=== PATIENT | female | born 1955 | race Hispanic/Latino ===

== ENCOUNTER 2024-07-10 02:08 | Observation (INO) | payer OTHER ==
[~2024-07-10] VITALS: Ht 152.4 cm; Wt 49.8 kg
[2024-07-10] MEDS: ondanSETRON 4MG INJ IVP ONE (03:25)
[2024-07-10] MEDS: morPHINE 2 MG SYG IVP ONE (03:25)
[2024-07-10] MEDS: 0.9%NACL 1000ML 1,000 ML IV ONE (03:25)
[2024-07-10 03:34] LABS: BASOPHILS # (AUTO) 0.04 K/uL (0.00-0.20); BASOPHILS % (AUTO) 0.2 % (0.0-5.0); EOSINOPHILS # (AUTO) 0.03 K/uL (0.00-0.70); EOSINOPHILS % (AUTO) 0.2 % (0.0-8.0); HEMATOCRIT 32.9 % (36-48); IMMATURE GRANULOCYTE ABSOLUTE 0.13 K/uL (0-1); LYMPHOCYTES # (AUTO) 1.7 K/uL (1.0-4.8); MEAN CORPUSCULAR HEMOGLOBIN 31.4 pg (27.0-33.0); MEAN CORPUSCULAR HGB CONC 33.4 g/dL (32.0-36.0); MONOCYTES # (AUTO) 0.5 K/uL (0.1-1.0); MONOCYTES % (AUTO) 2.9 % (3.0-13.0); PLATELET COUNT (AUTO) 423 K/uL (130-400); RED CELL DISTRIBUTION WIDTH 12.6 % (11.0-15.5); WHITE BLOOD COUNT (AUTO) 18.4 K/uL (4.8-10.8)
[2024-07-10 03:44] LABS: CREATININE 0.8 mg/dL (0.5-1.0); POTASSIUM 4.2 mmol/L (3.5-5.1)
--- NOTE | 2024-07-10 03:48 | ERN ---
ED Note History of Present Illness Stated Complaint: CHEST PAIN/ABDOMINAL PAIN AFTER TAKING T3 Chief Complaint: Chest Pain Time Seen by MD: 02:10 Dictation: This is a 68-year-old female who came to the emergency room via EMS with complaints of severe epigastric pain and apparently she took half a tablet of Tylenol No. 3 for arthritis pain. The pain was so excruciating it would come and go like cramping she had nausea but no vomitings. No diarrhea she had a bowel movement this afternoon No hematemesis or melena Chronic problems include hypertension and right ankle pain. Allergies: Coded Allergies: No Known Drug Allergies (Unverified Allergy, Unknown, 07/10/24) Past Medical History Past Medical History: Hypertension Additional Past Medical Hx: FX RIGHT ANKLE Surgical History: None Family History: Negative Social History: Negative History: Not Applicable RN Note Reviewed/Agreed w/PFSH: Yes Review of System Dictation Constitutional: Negative for fever,chills, and weight loss Eyes: Negative for injury, pain,redness, and discharge ENT: Negative for injury,pain or swelling Cardiovascular: Negative for chest pain, palpitations, and edema Respiratory: Negative for shortness of breath, cough, and wheezing, Abdomen/GI: Positive for epigastric abdominal pain, nausea, denied vomiting, diarrhea, and constipation Back: Negative for injury and pain : Negative for injury, bleeding and discharge MS/Extremity: Negative for injury and deformity Skin: Negative for rash, and discoloration Neuro: Negative for headache, weakness, numbness, tingling, and seizure Psych: Negative for suicide ideation, homicidal ideation, and hallucinations Physical Exam Dictation General: awake, alert, NAD very emaciated chronically ill-appearing female who appeared uncomfortable due to pain and discomfort. Head/Face: Normocephalic, atraumatic Eyes: PERRL, EOMI, vision at baseline ENT: oral cavity clear, TMs clear, no signs of infection Neck: Trachea midline, supple, no nuchal rigidity Cardiovascular: RRR, normal S1/S2, No MRGs, no JVD Respiratory: CTAB, no respiratory distress, No rales or wheezes Abdomen: Soft, tenderness in the epigastric area non-distended, normal bowel sounds, no guarding or rebound. Skin: Warm, dry, normal turgor, no rash MS/Extremity: Pulses equal, no cyanosis, neurovascular intact, FROM Neuro: COAx4, GCS 15, strength 5/5, CN 2-12 intact, normal cerebellar exam, normal gait, Psych: Normal behavior, mood, and affect normal Extremities-trace edema without any palpable cords, Homans sign is negative Results (Laboratory/Radiology) Laboratory/Radiology Laboratory Tests Test 07/10/24 03:23 White Blood Count 18.4 K/uL (4.8-10.8) H Red Blood Count 3.50 MIL/uL (4.00-5.50) L Hemoglobin 11.0 g/dL (12.0-16.0) L Hematocrit 32.9 % (36-48) L Mean Corpuscular Volume 94.0 fL (79-99) Mean Corpuscular Hemoglobin 31.4 pg (27.0-33.0) Mean Corpuscular Hemoglobin Concent 33.4 g/dL (32.0-36.0) Red Cell Distribution Width 12.6 % (11.0-15.5) Platelet Count 423 K/uL (130-400) H Mean Platelet Volume 8.8 fL (7.5-10.5) Immature Granulocyte % (Auto) 0.7 % (0-1) Neutrophils (%) (Auto) 87.0 % (40.0-77.0) H Lymphocytes (%) (Auto) 9.0 % (21.0-51.0) L Monocytes (%) (Auto) 2.9 % (3.0-13.0) L Eosinophils (%) (Auto) 0.2 % (0.0-8.0) Basophils (%) (Auto) 0.2 % (0.0-5.0) Neutrophils # (Auto) 16.0 K/uL (1.8-7.7) H Lymphocytes # (Auto) 1.7 K/uL (1.0-4.8) Monocytes # (Auto) 0.5 K/uL (0.1-1.0) Eosinophils # (Auto) 0.03 K/uL (0.00-0.70) Basophils # (Auto) 0.04 K/uL (0.00-0.20) Absolute Immature Granulocyte (auto 0.13 K/uL (0-1) Nucleated Red Blood Cells 0.0 % (0.0-0.19) White Cell Morphology Comment See comments Sodium Level 136 mmol/L (136-145) Potassium Level 4.2 mmol/L (3.5-5.1) Chloride Level 98 mmol/L (101-111) L Carbon Dioxide Level 27 mmol/L (21-32) Blood Urea Nitrogen 16 mg/dL (7-18) Creatinine 0.8 mg/dL (0.5-1.0) Glomerular Filtration Rate Calc 80 mL/min (>90) Random Glucose 128 mg/dL (70-105) H Total Calcium 9.4 mg/dL (8.5-10.1) Total Creatine Kinase 59 U/L (21-232) Troponin I High Sensitivity 5.6 ng/L (4-50) Lipase 262 U/L (16-77) H Labs Reviewed?: Yes ED Course ED Course Orders Procedure Category Date Status Time Cbc With Differential LAB 07/10/24 Complete 02:13 Urinalysis Profile LAB 07/10/24 In Process 02:13 12 Lead Ekg Tracing- EKG 07/10/24 Logged Technical 02:13 0.9%Nacl 1000ml (Ns PHA 07/10/24 In Process 1000ml) 02:30 Morphine 2mg Syg PHA 07/10/24 Complete (Morphine 2mg Syg) 02:30 Ondansetron 4mg Inj PHA 07/10/24 Complete (Zofran 4mg Inj) 02:30 Chest 1vw RAD 07/10/24 Taken 02:13 Lipase LAB 07/10/24 Complete 02:13 Basic Metabolic Panel LAB 07/10/24 Complete 02:13 Ct Abdomen/Pelvis W/O CT 07/10/24 Taken Contrast 03:27 Cardiac Panel LAB 07/10/24 Complete 03:23 Magnesium LAB 07/10/24 In Process 03:52 Current Medications Medications (Trade) Dose Ordered Sig/Cortes Route PRN Reason Start Time Stop Time Status Last Admin Dose Admin Morphine Sulfate (morPHINE 2MG SYG) 2 mg ONCE ONCE IVP 07/10/24 02:30 07/10/24 02:57 DC 07/10/24 03:25 Ondansetron HCl (zoFRAN 4MG INJ) 4 mg ONCE ONCE IVP 07/10/24 02:30 07/10/24 02:57 DC 07/10/24 03:25 Sodium Chloride 1,000 ml @ 125 mls/hr ONCE ONCE IV 07/10/24 02:30 07/10/24 10:29 07/10/24 03:25 We will perform diagnostic labs, advanced imaging and administer medications according to the patient's complaint. Once the results are available, will review and personally interpreted the labs to rule out any acute life- threatening emergency the trach require immediate intervention and treatment. I will then re-evaluate the patient after treatment and diagnostic exams have return to determine whether the patient requires any further testing, can safely be discharged home or need further admission to hospital for additional treatment and evaluation. CBC showed a white count of 18.4 platelets 423. Chest x-ray showed hyperinflation but no obvious infiltrates. BNP 7 urinalysis are pending at this time I pursued a CT scan of the abdomen and pelvis to evaluate the persistent epigastric pain and a lipase of 262. There was no evidence of any pancreatitis and CT abdomen and pelvis was relatively benign and Bochdaleks hernia Due to severe epigastric pain I have recommended admission to the hospital to see if she has any hiatal hernia that is strangulated. Also with the leukocytos is urinalysis is still pending. On reassessment at 5:50 a.m. patient stated that the pain came back with severe tenderness. 6:00 a.m. patient accepted by [facility] mid-level provider for [facility] group for admission and further management including need for GI evaluation Medical Decision Making MDM MDM: Differential diagnosis: Gastritis, esophagitis, hiatal hernia, cholecystitis, peptic ulcer disease, strangulated hernia Rationale: Tests considered and ordered secondary to shared decision making include: labs, ECG and radiology Previous outside records reviewed: Old ER visits. Risk of complication and/or morbidity or mortality of patient management: None Medications-Per medication reconciliation Need for hospitalization: Patient does meet criteria for hospitalization. Need for emergency major/minor surgery: No There are no social concerns with this patient. Prescription drug management Prescriptions will include symptomatic care Patient's prior external medical records from other ER visits were reviewed by me as indicated. Prior testing and results from previous visits were reviewed. Prior tests were taken into account with medical decision making and resource utilization, independent historian/historians were used to obtain complete medical history. I independently interpreted the test that were performed, results were reviewed by me and considered findings on radiology if ordered. Medical management and examination interpretation discussions were had by me with other qualified healthcare professionals as indicated for the patient's care. Problem List Problem List: (1) Epigastric pain (2) Leukocytosis DX & DISP Disposition: Inpatient Decision to Admit Time: 06:00 Departure Impression: Primary Impression: Epigastric pain Additional Impression: Leukocytosis Condition: Stable Additional Instructions: Patient was informed of all the diagnostic labs and procedures conducted in the emergency room today and demonstrated understanding of the results. I personally reviewed and interpreted all the diagnostic exams performed in the ER today. The patient will be admitted to the hospital for further treatment and e valuation. Disposition-admit to facility Condition-stable/guarded Course-uncertain at this time Pain status-decreased Assessment-exam unchanged Admission Certification- I certify that the patients status is appropriate and is based on my best clinical judgment and the patient's condition as documented in the medical records Referrals: SELF,REFERRAL (PCP) CHANNING TATE MD July 10, 2024 03:48
[2024-07-10 05:59] LABS: APPEARANCE,URINE CLEAR (CLEAR); BILIRUBIN,URINE NEGATIVE (NEGATIVE); COLOR,URINE YELLOW (YELLOW); GLUCOSE, URINE (UA) NEGATIVE (NEGATIVE); KETONES,URINE NEGATIVE (NEGATIVE); LEUKOCYTE ESTERASE ,URINE 75 Leu/uL (NEGATIVE); NITRATE,URINE NEGATIVE (NEGATIVE); PH,URINE 5.5 (5.0-8.0); PROTEIN,URINE NEGATIVE (NEGATIVE); UROBILINOGEN,URINE 0.2 mg/dL (0.2-1.0)
[2024-07-10 06:00] LABS: ADD UA MICROSCOPIC YES
[2024-07-10] MEDS ORDERED: ondanSETRON 4MG INJ IVP PRN (06:00)
[2024-07-10] MEDS ORDERED: LAbetaLOL 20MG SYG IV PRN (06:00)
[2024-07-10] MEDS ORDERED: acetaMINOPHEN 650 MG SUPPOSITORY RC PRN (06:00)
[2024-07-10] MEDS ORDERED: acetaMINOPHEN 325 MG TAB PO PRN (06:00)
[2024-07-10] MEDS: INSULIN humuLIN R 100 UNIT/ML 3ML SQ SCH (06:00)
[2024-07-10] MEDS ORDERED: hydrALAZine 20MG/ML VIAL IV PRN (06:00)
[2024-07-10 06:02] LABS: BACTERIA,URINE MOD /HPF (None Seen); MUCUS,URINE RARE LPF (None Seen); SQUAMOUS EPITHELIAL CELL,UR RARE /HPF (0-2)
[2024-07-10] MEDS ORDERED: hydroMORPHone 0.5 MG SYG (0.5MG/0.5ML) IVP PRN (06:30)
[2024-07-10] MEDS: ZOSYN 3.375GM +NS 50ML IV SCH (06:30)
--- NOTE | 2024-07-10 07:10 | NUR ---
REPORT GIVEN TO BARTOLO RN AT THIS TIME
--- NOTE | 2024-07-10 08:33 | EKG ---
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
--- NOTE | 2024-07-10 08:40 | HMCIMG ---
Exam Type: CT ABDOMEN/PELVIS W/O CONTRAST Clinical Information: severe abdominal pain with tenderness in upper adbomen Comparison: None CT Dose Index (CTDI): 10.20 mGy Dose Length Product (DLP): 530.00 total mGy-cm PROTOCOL: Routine noncontrast helical scanning of the abdomen and pelvis was performed at 5mm collimation. Findings: No evidence of nephro or ureterolithiasis is found. No hydronephrosis or ureteral dilatation is seen. The lung bases are clear. Small left-sided Bochdalek hernia, fat-containing. The stomach is unremarkable. It shows no wall thickening. No gross ulceration is seen. It is not overly distended. There are no surrounding inflammatory changes. No wall lesions are identified to suggest cancer. The spleen is unremarkable. It is not enlarged. The pancreas shows normal anatomy. It is not fatty replaced. It shows no lesions. The pancreatic duct is not dilated. The gallbladder is surgically absent. The adrenal glands are unremarkable. There is no enlargement. No lesions are noted. The liver is unremarkable. It shows no focal masses. The appendix is unremarkable. It shows no evidence of inflammation. No appendicolith is seen. The small bowel is unremarkable. There is no evidence of dilatation to suggest obstruction. No evidence of adynamic ileus is seen. There is no small bowel wall thickening to suggest enteritis. The colon is unremarkable. The urinary bladder is unremarkable. There is no wall thickening to suggest tumor or inflammation. There are no intraluminal calculi. There are no diverticula. There is no evidence of chronic bladder outlet obstruction. There is no evidence of urinary bladder distention to suggest urinary retention. The other pelvic structures are unremarkable. The bony and vascular structures are unremarkable for the patient's age. IMPRESSION: NO RENAL STONES. NO ACUTE PATHOLOGY OR INFLAMMATION SEEN. This study was performed using dose reduction techniques to include automated exposure control and/or adjustment of the mA and/or kV according to patient size.
--- NOTE | 2024-07-10 09:04 | HMCIMG ---
Exam Type: CHEST 1VW Clinical Information: upper abdominal and lower chest pain Comparison: None Findings: The lungs are clear of infiltrates. The heart is normal in size. The bony and soft tissue structures of the chest are unremarkable. Impression: Clear lungs.
[2024-07-10] MEDS: PANTOPrazole 40 MG/VIAL IVP SCH (11:15)
[2024-07-10] MEDS: ENOXAPARIN SODIUM 40 MG/0.4 ML SYRINGE SQ SCH (11:15)
--- NOTE | 2024-07-10 12:14 | HP ---
[facility] HISTORY & PHYSICAL Date Patient Seen: July 10, 2024 Time of Visit: 12:14 Supervising Physician: [Dr. Ruiz] Primary Care Physician: [None documented] Outpatient Specialists: [ ] Inpatient Consults: [ ] PROBLEM LIST: Epigastric abdominal pain, POA, resolved Mild pancreatitis Leukocytosis Essential hypertension Recent right ankle surgery Plan: Start NS at 50 mL an hour Order CMP now and in a.m. Order procalcitonin Order abdominal ultrasound Repeat lipase, and CBC in a.m. Continue Zosyn Zofran as needed DVT and GI prophylaxis Further management per hospital course Discharge home once medically cleared HPI: [This is a 68-year-old female with a history of hypertension and recent right ankle surgery about a week ago presents to ED for evaluation of abdominal pain which she described as epigastric in nature. States it was a cramping pain associated with nausea but no vomiting. She has a history of prior cholecystectomy several years ago. Her labs on admission revealed leukocytosis with WBC of 18 and elevated lipase levels at 262. Her troponin was negative x2 and CK was normal. UA shows some leukocyte esterase, pending urine culture. Her CT of the abdomen was unremarkable, CXR normal. She was treated with morphine, Zofran and NS in the ED. States her abdominal pain has since resolved. She continues now on Zosyn. No abdominal pain with palpation.] PAST MEDICAL HX: see above PAST SURGICAL HX: noncontributory SOCIAL HISTORY: No tobacco, ETOH, or illicit drug use Coded Allergies: No Known Drug Allergies (Unverified Allergy, Unknown, 07/10/24) REVIEW OF SYSTEMS: 12 point ROS reviewed with patient. Pertinent positives mentioned above. Otherwise negative. PHYSICAL EXAM: GENERAL: alert, weak, awake oriented x 3 HEENT: EOMI, Sclera non icteric, moist mucosa NECK: Supple, no JVD, trachea midline LUNGS: Clear breath sounds bilaterally. No wheezes HEART: Regular rate and rhythm. Normal S1 and S2, without murmurs ABD: Abdomen soft, nontender. Bowel sounds present EXT: No clubbing cyanosis or edema NEURO: Alert and oriented to person, follows commands Vital Signs (last 8hr) Date Time Temp Pulse Resp B/P (MAP) Pulse Ox O2 Delivery O2 Flow Rate FiO2 07/10/24 07:40 97.5 72 15 138/60 100 Room Air* 0 21 07/10/24 06:21 75 16 137/69 100 Room Air* 0 21 07/10/24 05:40 65 16 117/57 99 Room Air* 0 21 07/10/24 04:19 67 17 151/68 100 Room Air* 0 21 LABS: Hematology Labs: Test 07/10/24 03:23 Range/Units White Blood Count 18.4 H 4.8-10.8 K/uL Red Blood Count 3.50 L 4.00-5.50 MIL/uL Hemoglobin 11.0 L 12.0-16.0 g/dL Hematocrit 32.9 L 36-48 % Mean Corpuscular Volume 94.0 79-99 fL Mean Corpuscular Hemoglobin 31.4 27.0-33.0 pg Mean Corpuscular Hemoglobin Concent 33.4 32.0-36.0 g/dL Red Cell Distribution Width 12.6 11.0-15.5 % Platelet Count 423 H 130-400 K/uL Mean Platelet Volume 8.8 7.5-10.5 fL Immature Granulocyte % (Auto) 0.7 0-1 % Neutrophils (%) (Auto) 87.0 H 40.0-77.0 % Lymphocytes (%) (Auto) 9.0 L 21.0-51.0 % Monocytes (%) (Auto) 2.9 L 3.0-13.0 % Eosinophils (%) (Auto) 0.2 0.0-8.0 % Basophils (%) (Auto) 0.2 0.0-5.0 % Neutrophils # (Auto) 16.0 H 1.8-7.7 K/uL Lymphocytes # (Auto) 1.7 1.0-4.8 K/uL Monocytes # (Auto) 0.5 0.1-1.0 K/uL Eosinophils # (Auto) 0.03 0.00-0.70 K/uL Basophils # (Auto) 0.04 0.00-0.20 K/uL Absolute Immature Granulocyte (auto 0.13 0-1 K/uL Nucleated Red Blood Cells 0.0 0.0-0.19 % White Cell Morphology Comment See comments Chemistry Labs: Test 07/10/24 06:25 07/10/24 03:23 Range/Units Whole Blood Glucose 113 H 70-110 MG/DL Sodium Level 136 136-145 mmol/L Potassium Level 4.2 3.5-5.1 mmol/L Chloride Level 98 L 101-111 mmol/L Carbon Dioxide Level 27 21-32 mmol/L Blood Urea Nitrogen 16 7-18 mg/dL Creatinine 0.8 0.5-1.0 mg/dL Glomerular Filtration Rate Calc 80 >90 mL/min Random Glucose 128 H 70-105 mg/dL Total Calcium 9.4 8.5-10.1 mg/dL Magnesium Level 2.20 1.80-2.40 mg/dL Total Creatine Kinase 59 21-232 U/L Troponin I High Sensitivity 5.6 4-50 ng/L Lipase 262 H 16-77 U/L DIAGNOSTICS / RADIOLOGY RESULTS: [ ] PLAN NEURO: Minimize central acting medications as possible. Maintain fall precautions, adequate lighting during the day PULMONARY: Supplemental 02 as needed. Maintain aspiration precautions at all times CARDIOVASCULAR: Follow hemodynamics. Vital signs per facility protocol GI & NUTRITION: Continue with nutritional support. Continue stool softeners and laxatives as needed. KIDNEYS & ELECTROLYTES: Strict monitoring of intake, output and overall fluid balance. Avoid nephrotoxic medications to the extent possible. Medications to be dosed according to renal function. Monitor electrolytes and replace as needed ENDOCRINE: Maintain blood glucose between 100-180 at all times. Hypoglycemia protocol in place INFECTIOUS DISEASE: Trend temperature, WBC and procalcitonin level Follow cultures, deescalate antibiotics as soon as possible. Panculture if new onset fever ONCOLOGY/HEMATOLOGY/COAGULATION: Monitor for s/s of bleeding Monitor hemoglobin, coagulation studies as needed SKIN: Pressure ulcer prevention per facility protocol Specialty mattress ORTHO/REHAB: Continue PT/OT Prophylaxis: Continue GI and DVT prophylaxis Code Status: Full Resuscitation Disposition: TBD Other: Total patient care time exceeds 35 minutes excluding all procedures. TAMMY PAULINO July 10, 2024 12:14
[2024-07-10] MEDS ORDERED: LISI20TA24 PO (15:01)
[2024-07-10] MEDS ORDERED: ACET-2079 PO (15:01)
--- NOTE | 2024-07-10 15:20 | NUR ---
DCP:HOME Sw met with pt and her Rubens Motta [phone]. Pt with broken ankle, had surgery at [facility] last Narayan. Uses a scooter to get around at this time. Pt states she is independent of ADLS, uses no DME or in home care services. PCP is [facility] [place] and uses [facility] for rx. Denies dc needs and states she will return home at dc Addendum: 07/10/24 at 1529 by BELKIS CHAUHAN SS Amended: Links added.
[2024-07-10] MEDS: 0.9%NACL 1000ML 1,000 ML IV SCH (18:04)
[2024-07-10 18:18] LABS: ALBUMIN 3.3 g/dL (3.5-5.0); BILIRUBIN,TOTAL 0.3 mg/dL (0.2-1.0); CREATININE 0.7 mg/dL (0.5-1.0); POTASSIUM 4.2 mmol/L (3.5-5.1)
--- NOTE | 2024-07-10 23:48 | NUR ---
REPORT GIVEN TO CIARRA LEON
[2024-07-11 00:05] VITALS: BP 153/80; PULSE 74; RESP 17; TEMP 98.4
[2024-07-11 01:17] VITALS: O2SAT 99
[2024-07-11 04:00] VITALS: BP 131/61; PULSE 79; RESP 18; TEMP 97.6
[2024-07-11 05:29] LABS: BASOPHILS # (AUTO) 0.03 K/uL (0.00-0.20); BASOPHILS % (AUTO) 0.5 % (0.0-5.0); EOSINOPHILS # (AUTO) 0.05 K/uL (0.00-0.70); EOSINOPHILS % (AUTO) 0.8 % (0.0-8.0); HEMATOCRIT 29.7 % (36-48); IMMATURE GRANULOCYTE ABSOLUTE 0.04 K/uL (0-1); LYMPHOCYTES % (AUTO) 32.8 % (21.0-51.0); MEAN CORPUSCULAR HEMOGLOBIN 31.7 pg (27.0-33.0); MEAN CORPUSCULAR VOLUME 93.1 fL (79-99); MONOCYTES # (AUTO) 0.4 K/uL (0.1-1.0); MONOCYTES % (AUTO) 5.9 % (3.0-13.0); NEUTROPHILS # (AUTO) 3.6 K/uL (1.8-7.7); NEUTROPHILS % (AUTO) 59.3 % (40.0-77.0); PLATELET COUNT (AUTO) 389 K/uL (130-400); RED BLOOD CELL COUNT(AUTO) 3.19 MIL/uL (4.00-5.50); RED CELL DISTRIBUTION WIDTH 12.9 % (11.0-15.5); WHITE BLOOD COUNT (AUTO) 6.1 K/uL (4.8-10.8)
[2024-07-11 05:49] LABS: ALBUMIN 3.1 g/dL (3.5-5.0); BILIRUBIN,TOTAL 0.3 mg/dL (0.2-1.0); CREATININE 0.6 mg/dL (0.5-1.0); TOTAL PROTEIN, SERUM 6.5 g/dL (6.0-8.3)
[2024-07-11 08:00] VITALS: BP 128/65; PULSE 76; RESP 19; TEMP 98.6; O2SAT 96
--- NOTE | 2024-07-11 09:14 | HMCIMG ---
Exam Type: US ABDOMINAL COMPLETE Clinical Information: abdominal pain Comparison: None Findings: The liver shows normal echogenicity is otherwise unremarkable. Doppler evaluation shows patent portal and hepatic veins. The gallbladder is surgically absent. No bile duct dilatation is noted. The common bile duct measures 7 mm. The right kidney measures 9.1 x 4.4 cm. The left kidney measures 8.5 x 4.6 cm. The kidneys show no hydronephrosis or calculi, masses or other abnormalities. The pancreas is unremarkable. The spleen is unremarkable. The aorta and inferior vena cava show no significant abnormalities. IMPRESSION: Status post cholecystectomy. Otherwise unremarkable exam.
--- NOTE | 2024-07-11 10:12 | NUR ---
Nutritional Recommendations: -Nephrovite MVI combination of B vitamins may be used to treat or prevent vitamin deficiency due to poor diet. -Magic Cup 4oz w/ PM tray: Provides 9gm pro/ 290kcal and 20 vitamins and minerals. Bronson to serve with meals as a means of adding calories and protein for unintended weight loss. -ProStat BID (30 ml) JELLO - Electrolyte replacements per protocol -Monitor feeding tolerance, %, wt, and labs -Document PO intake and wt daily. -If No BM >3days consider bowel stimulant. -Schedule outpatient RD f/u for long-term nutrition care. - Notify RD if additional nutrition concerns arise. SEE RD Nutritional Assessment for additional assessment information. Addendum: 07/11/24 at [address] Amended: Links added.
[2024-07-11 12:00] VITALS: BP 144/90; PULSE 87; RESP 19; TEMP 98.2
[2024-07-11] MEDS: LISINOPRIL 20 MG TABLET PO SCH (14:43)
[2024-07-11 16:00] VITALS: BP 166/91; PULSE 87; RESP 19; TEMP 98.5
[2024-07-11] MEDS ORDERED: LEVO750T68 PO (16:11)
--- NOTE | 2024-07-11 16:13 | DS ---
[facility] DISCHARGE SUMMARY Date Patient Seen: July 11, 2024 Time of Visit: 15:59 Supervising Physician: [Dr. Roa] Primary Care Physician: [Dr. Davis] Outpatient Specialists: [ ] Inpatient Consults: [ ] PROBLEM LIST: Mild pancreatitis Acute complicated cystitis Leukocytosis Essential hypertension Recent right ankle surgery Plan: Continue oral antibiotics upon discharge for 5 more days Follow-up with PCP on Sunday for re-evaluation and follow of final urine cultures HOSPITAL COURSE: HPI (per admitting provider) Patient was admitted for generalized abdominal pain associated with cramping and nausea. She was found to have leukocytosis of 18 on admission. She was given morphine in the ED with resolution of pain. She was also treated with Zosyn and IV fluids. She was monitored overnight with significant improvement in white blood count to six and resolution of abdominal pain without pain medication. She was found to have acute complicated cystitis with urine cultures results pending. She had a CT abdomen and pelvis which revealed no acute findings. Her abdominal ultrasound did not find any stones or gallbladder sludge. She did bonilla ve lipase levels of 262 and mildly elevated LFTs in the 100s but were downtrending at the time of discharge. She was completely asymptomatic and afebrile without nausea or vomiting. Did have normal bowel movement while admitted and was able to tolerate regular diet without nausea, vomiting or abdominal pain. Her abdomen was soft and nontender with deep palpation, therefore decision was made to discharge the patient on oral antibiotics. She was advised to follow with the PCP for repeat UA and complete oral antibiotics upon discharge. She verbalized understanding and was in agreement. CHRONIC PROBLEMS: continue previous management per PCP unless otherwise indicated DISCHARGE MEDICATIONS: As listed below. Pt hemodynamically stable and afebrile at time of discharge. PCP notified of patients admission, hospital course and discharge. New Medications: Levofloxacin (Levaquin 750Mg Tabs) 750 Mg Tablet 1 TAB PO DAILY for 5 Days, #5 TAB 0 Refills Continued Medications: Acetaminophen with Codeine (Acetaminophen-Cod #3 Tablet) 300 Mg-30 Mg Tablet 1 TAB PO Q6HPRN PRN for pain for 7 Days, #28 TAB 0 Refills Lisinopril (Lisinopril) 20 Mg Tablet 20 MG PO DAILY, TAB PHYSICAL EXAM: GENERAL: alert, weak, awake oriented x 3, afebrile HEENT: EOMI, Sclera non icteric, moist mucosa NECK: Supple, no JVD, trachea midline LUNGS: Clear breath sounds bilaterally. No wheezes HEART: Regular rate and rhythm. Normal S1 and S2, without murmurs ABD: Abdomen soft, nontender. Bowel sounds present, no acute findings EXT: No clubbing cyanosis or edema NEURO: Alert and oriented to person, follows commands FOLLOW-UP: Follow-up with PCP on Sunday for re-evaluation, repeat UA and monitoring of CBC. Continue oral antibiotics upon discharge. RECOMMENDATIONS: See Discharge Instructions This case was seen and discussed with my supervising physician. More than 30 minutes spent on discharge process, including evaluation of the patient, discu ssion with nursing staff, medication reconciliation and follow-up appointments TAMMY PAULINO July 11, 2024 16:13 MORENA ROA MD July 13, 2024 17:15
== END 2024-07-11 18:05 | disposition home or self-care (01) ==
LOC: EDH 02:08 → INTOOBSV 05:53 → EDHIP 05:53 → 4AH 07-11 00:09
PROVIDERS: ADMIT Internal Medicine; ATTEND Internal Medicine
DX: K85.90 Acute pancreatitis without necrosis or infection, unspecified (principal); D72.829 Elevated white blood cell count, unspecified; I10 Essential (primary) hypertension; N30.00 Acute cystitis without hematuria; R11.0 Nausea; Z98.890 Other specified postprocedural states; Z79.899 Other long term (current) drug therapy; Z90.49 Acquired absence of other specified parts of digestive tract
CPT/HCPCS: 96365; 96366 ×4; 96375; 99285; 82550; 83735 ×2; 84484; 80053 ×2; 83690 ×2; 85025 ×2; 87086 ×2; 87186; 82948 ×4; 81001; 36415 ×2; 71045; 74176; 76700; 93005; 96376; 96372; 84100; 83605; 84145; G0378 ×3; J2270; J7030; J2405; J2543 ×5; J2470 ×2; J1650 ×2; 80048; 96361